=== PATIENT | female | born 1985 | race American Indian/Alaskan Native ===

== ENCOUNTER 2021-04-03 02:16 | Inpatient (IN) | payer BC, OTHER ==
[~2021-04-03 02:16] MED LIST: DIPH50 PO; HYDACE5 PO; META800 PO; Miralax17 GM PO; Mobic15 MG PO; Norco 5-325 Ta1 EACH PO; VICODIN ES 7.51 EACH PO
[2021-04-03 03:33] LABS: BASOPHILS ABSOLUTE AUTO 0.01 K/mm3 (0.00-0.23); BASOPHILS PERCENT AUTO 0 % (0-2); EOSINOPHILS ABSOLUTE AUTO 0.02 K/mm3 (0.00-0.68); EOSINOPHILS PERCENT AUTO 0 % (0-6); Hematocrit 29.7 % (33.0-51.0); Hemoglobin 8.9 g/dL (11.5-16.0); IMMATURE GRAN ABSOLUTE AUTO 0.03 K/mm3 (0.00-0.10); IMMATURE GRAN PERCENT AUTO 0 % (0-1); LYMPHOCYTES ABSOLUTE AUTO 2.04 K/mm3 (0.84-5.20); LYMPHOCYTES PERCENT AUTO 29 % (21-46); MONOCYTES ABSOLUTE AUTO 0.46 K/mm3 (0.16-1.47); MONOCYTES PERCENT AUTO 6 % (4-13); Mean Corpuscular HGB 21.8 pg (26.0-34.0); Mean Corpuscular Volume 73 fL (80-100); NEUTROPHILS ABSOLUTE AUTO 4.58 K/mm3 (1.96-9.15); NEUTROPHILS PERCENT AUTO 64 % (41-73); NRBC ABSOLUTE 0.02 K/mm3 (0.00-0.02); NRBC Auto 0.3 /100 WBC (0.0-0.2); Platelet Count 218 K/mm3 (150-400); RDW Coefficient Variation 14.3 % (11.7-14.2); RDW Standard Deviation 37.5 fL (35.1-46.3); Red Blood Cell Count 4.09 M/mm3 (3.80-5.20); White Blood Cell Count 7.14 K/mm3 (4.00-11.30)
[2021-04-03 03:34] LABS: Mean Platelet Volume 13.5 fL (9.1-12.4)
[2021-04-03] MEDS ORDERED: PRENATAL TABLE1 EAC2 (03:48)
[2021-04-03 04:20] LABS: SARS-Cov-2 (COVID-19) PCR, MMC NEGATIVE (NEGATIVE)
[2021-04-03 05:26] LABS: PCO2 Cord - Arterial 76.3 mmHg (40-50); PO2 Cord - Arterial < 13 mmHg (16-20)
[2021-04-03 05:27] LABS: PCO2 Cord - Venous 60.8 mmHg (40-50); PO2 Cord - Venous < 13 mmHg (28-32); pH Umbilical Cord - Venous 7.29 (7.26-7.35)
--- NOTE | 2021-04-03 07:00 | NUR ---
REPORT TO JS ROSSI. PT'S PAIN IS POORLY CONTROLLED, SO PRN FENTANYL IS GIVEN. AWAITING TORADOL AVAILABILITY FROM PHARMACY. REVIEWED FUNDUS AND DRESSING OVER INCISION. PT ALONSO SCORE 9/10 DUE TO UNABLE TO MOVE HER FEET.
--- NOTE | 2021-04-03 10:52 | NUR ---
PT SLEEPING WITH IN THE BED, WOKEN UP AND EDUCATED ABOUT OUR NO CO-SLEEPING POLICY. PT WANTS TO CONTINUE TO HOLD , AND IS NOW AWAKE.
--- NOTE | 2021-04-03 11:42 | NUR ---
[facility]
--- NOTE | 2021-04-03 13:51 | NUR ---
LAB IN FOR THE SECOND TIME TO GET CBC, PT REFUSES BECAUSE SHE WANTS TO SLEEP, REQUESTS THEY COME BACK LATER.
--- NOTE | 2021-04-03 15:40 | NUR ---
PT REFUSING SCDs. EDUCATED ABOUT IMPORTANCE POST-OP/WHILE IN BED. PT STATES SHE DOESN'T WANT THEM ON RIGHT NOW AND MAYBE LATER.
--- NOTE | 2021-04-03 17:02 | NUR ---
RN in to room to see if pt willing to have labs drawn at this time. Refused for earlier RN (they were ordered for noon). Pt states "no, I'm in too much pain." Discussed with pt that pain medication should be kicking in and to let us know when we can get it drawn. Pt states understanding. Sleeping when undisturbed.
--- NOTE | 2021-04-03 18:52 | NUR ---
PATIENT COMPLAINED OF CATHETER BAG BEING "HEAVY" AND PAINFUL. ASKED HOW LONG IT HAD BEEN SINCE WE EMPTIED IT? 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
--- NOTE | 2021-04-03 21:41 | NUR ---
RN DISCUSSED NB URINE TOXICOLOGY RESULTS WITH PT AND PT ADMITS TO USING SUBUTEX THAT SHE GETS FROM A FRIEND. SHE SAID SHE TAKES APPROXIMATELY 8MG/DAY (4MG IN AM AND 4MG IN PM) AND THAT SHE HAS TRIED TO WEAN HER SELF DOWN TO THAT AMOUNT. SHE ALSO STATES THAT SHE IS NOT ALWAYS ABLE TO GET SUBUTEX AND WHEN SHE ISN'T ABLE TO SHE USES OPIATES THAT SHE OBTAINS FROM WHEREVER SHE CAN GET THEM AND SHE ISN'T ALWAYS SURE WHAT ALL IS IN THE MEDICATIONS SHE IS TAKING. PT SAYS SHE DID NOT DO METHAMPHETAMINE OR AMPHETAMINES DURING HER . WHEN ASKED BY RN, PT DENIED ANY USE OF OUTSIDE DRUGS SINCE HER HOSPITAL ADMISSION. PT STAYED CALM AND COOPERATIVE THROUGHOUT CONVERSATION. RN DISCUSSED PT TALKING TO HER PROVIDER ABOUT HER DRUG USE IN THE MORNING.
[2021-04-04 05:49] LABS: BASOPHILS ABSOLUTE AUTO 0.03 K/mm3 (0.00-0.23); BASOPHILS PERCENT AUTO 0 % (0-2); EOSINOPHILS PERCENT AUTO 0 % (0-6); Hematocrit 28.6 % (33.0-51.0); Hemoglobin 8.7 g/dL (11.5-16.0); IMMATURE GRAN ABSOLUTE AUTO 0.13 K/mm3 (0.00-0.10); IMMATURE GRAN PERCENT AUTO 1 % (0-1); LYMPHOCYTES ABSOLUTE AUTO 1.94 K/mm3 (0.84-5.20); LYMPHOCYTES PERCENT AUTO 12 % (21-46); MONOCYTES ABSOLUTE AUTO 0.98 K/mm3 (0.16-1.47); MONOCYTES PERCENT AUTO 6 % (4-13); Mean Corpuscular HGB 21.8 pg (26.0-34.0); Mean Corpuscular HGB Conc 30.4 g/dL (31.5-36.5); Mean Corpuscular Volume 72 fL (80-100); NEUTROPHILS ABSOLUTE AUTO 13.58 K/mm3 (1.96-9.15); NEUTROPHILS PERCENT AUTO 82 % (41-73); NRBC ABSOLUTE 0.02 K/mm3 (0.00-0.02); NRBC Auto 0.1 /100 WBC (0.0-0.2); Platelet Count 190 K/mm3 (150-400); RDW Coefficient Variation 14.6 % (11.7-14.2); RDW Standard Deviation 37.2 fL (35.1-46.3); Red Blood Cell Count 3.99 M/mm3 (3.80-5.20); White Blood Cell Count 16.66 K/mm3 (4.00-11.30)
[2021-04-04 05:53] LABS: Mean Platelet Volume 13.6 fL (9.1-12.4)
[2021-04-04 08:11] LABS: HIV SCREEN 4TH GENERATION WRFX Non Reactive (Non Reactive)
--- NOTE | 2021-04-04 09:05 | NUR ---
MOTHER OFF UNIT TO GO OUTSIDE- FOB TOOK HER OUT IN WHEELCHAIR. NB UP TO DESK.
--- NOTE | 2021-04-04 09:35 | NUR ---
PT BACK FROM GOING OUTSIDE.
--- NOTE | 2021-04-04 10:30 | NUR ---
RN IN TO GIVE PT AM MEDS/PAIN MEDICATION SEVERAL TIMES. PT STATED UNABLE TO TAKE THEM EARLIER DUE TO GAGGING. SHE DID VOMIT ON TO FLOOR A LITTLE WHILE LATER. PT C/O PAIN ONCE AGAIN AND RN IN TO MEDICATE. PT WENT TO TAKE PILLS AND THEN STATED SHE COULDN'T CAUSE SHE WAS ALREADY GAGGING AGAIN. IN HOUSE AND GAVE ORDER TO GIVE ODT ZOFRAN. WILL SEE IF PT ABLE TO TOLERATE TAKING MEDS AFTER THIS KICKS IN.
--- NOTE | 2021-04-05 09:28 | NUR ---
PATIENT GOT BREAKFAST FROM [place], THEN DROPPED OFF FOOD IN ROOM AND WANTE TO GO BACK TO SMOKE SHE LEFT AT 0900 AND BACK AT 0918. CHILDREN SERVICES IN ROOM TALKING TO DAD WHILE SHE WAS GONE AND MOM IS BACK IN ROOM NOW.
--- NOTE | 2021-04-05 14:42 | NUR ---
FOB JUST WAKING FOR THE DAY AND WENT OUT SIDE. MOTHER TO NURSERY TO FEED BABY.
[2021-04-05] MEDS ORDERED: IBUP800 PO (15:42)
[2021-04-05] MEDS ORDERED: ACET500 PO (15:42)
[2021-04-05] MEDS ORDERED: OXYC5 (15:42)
[2021-04-05] MEDS ORDERED: COLACE100 MG PO (15:43)
--- NOTE | 2021-04-05 16:01 | NUR ---
BOTH MOTHER AND FATHER BACK TO SLEEP IN ROOM. MOTHER STATES SHE WANTS TO SLEEP AND THEN WILL FINISH PAPER WORK BEFORE BEING PUT TO BOARDER STATUS. EXPLAINED WE ARE NOT ABLE TO GIVE MEDICATION ONCE PUT TO BOARDER SO ROMÁN NEEDS TO GO GET IBUPROFEN AND TYLENOL FOR THE NIGHT. VERBALIZES UNDERSTANDING. ROMÁN HAS MAYBE BEEN AWAKE FOR 15 MINUTES TODAY.
--- NOTE | 2021-04-05 17:40 | NUR ---
MOTHER WOKE UP AND WENT OUTSIDE AND THEN TO NURSERY. VERY PAINFUL AFTER TO TRYING TO BF SO BACK TO ROOM REQUESTING PAIN PILLS AND NAUSEA MEDS. FOB REMAINS IN NURSERY AWAKE HOLDING BABY FOR THE FIRST TIME TODAY.
--- NOTE | 2021-04-05 18:36 | NUR ---
PT UP TO SHOWER NOW THAT PAIN IS BETTER AND FOB BACK ASLEEP ON COUCH.
--- NOTE | 2021-04-05 23:44 | NUR ---
RN ATTEMPTED TO DO DISCHARGE TEACHING WITH PT AT 1910, PT REFUSED STATING "THALIA HEARD IT ALL FIVE TIMES TODAY I DONT WANT TO HEAR IT AGAIN" ATTEMPTED TO REVIEW DISCHARGE TEACHING AGAIN AT THIS TIME PT CONTINUES TO REFUSE ANY EDUCATION.
--- NOTE | 2021-04-06 07:37 | NUR ---
04/06/21 0737 Carrol Cutler VERIFICATIONS: EDIT CHART.
== END 2021-04-05 23:50 | disposition home or self-care (01) | DRG 787 ==
LOC: OBS 02:16 → BC 02:20 → OBS 03:16 → BC 03:18
PROVIDERS: ADMIT Obstetrics & Gynecology
PROC: 10D00Z1 Extraction of Products of Conception, Low, Open Approach (ICD-10-PCS; principal; 2021-04-03 05:00)
DX: O42.92 Full-term premature rupture of membranes, unspecified as to length of time between rupture and onset of labor (principal); O99.324 Drug use complicating childbirth; O34.211 Maternal care for low transverse scar from previous cesarean delivery; O76 Abnormality in fetal heart rate and rhythm complicating labor and delivery; Z3A.37 37 weeks gestation of pregnancy; Z37.0 Single live birth; Z20.822 Contact with and (suspected) exposure to COVID-19; F19.10 Other psychoactive substance abuse, uncomplicated; O77.0 Labor and delivery complicated by meconium in amniotic fluid; O99.214 Obesity complicating childbirth; E66.9 Obesity, unspecified; O99.334 Smoking (tobacco) complicating childbirth; F17.210 Nicotine dependence, cigarettes, uncomplicated; Z88.1 Allergy status to other antibiotic agents; Z88.5 Allergy status to narcotic agent
CPT/HCPCS: 36415; 82803; 85025; 86317; 86592; 86762; 86850; 86870; 86900; 86901; 86902; 86905; 87389; A9270; J0690; J1885; J2270; J2405; J2590; J2765; J3010; J7120; Q0177; U0004